=== PATIENT | female | born 1995 | race Two or more races ===

== ENCOUNTER 2020-12-29 09:48 | Emergency (ER) | payer MEDICAID ==
[~2020-12-29] VITALS: Ht 170.2 cm; Wt 63.5 kg
[2020-12-29 11:11] VITALS: BP 138/84
== END 2020-12-29 11:23 | disposition home or self-care (01) ==
LOC: ER 09:48
DX: S93.402A Sprain of unspecified ligament of left ankle, initial encounter (principal); V43.62XA Car passenger injured in collision with other type car in traffic accident, initial encounter; Y93.89 Activity, other specified; Y92.488 Other paved roadways as the place of occurrence of the external cause; Y99.8 Other external cause status
CPT/HCPCS: 73610

== ENCOUNTER 2022-07-26 17:21 | Emergency (ER) | payer MEDICAID ==
[~2022-07-26] VITALS: Ht 170.2 cm; Wt 70.0 kg
[2022-07-26] MEDS ORDERED: methylPREDNISolone SOD SUCC 125 MG/2 ML VL IM ONE (18:45)
[2022-07-26] MEDS ORDERED: diphenhdrAMINE HCL 25 MG CAP PO ONE (18:45)
[2022-07-26] MEDS ORDERED: ACETAMINOPHEN 325 MG TAB PO ONE (18:45)
[2022-07-26 18:47] VITALS: BP 105/58
[2022-07-26] MEDS ORDERED: PRED20TA2 PO (20:47)
== END 2022-07-26 22:06 | disposition home or self-care (01) ==
LOC: ER 17:21
DX: T78.40XA Allergy, unspecified, initial encounter (principal); T78.3XXA Angioneurotic edema, initial encounter; Z79.899 Other long term (current) drug therapy; Y92.89 Other specified places as the place of occurrence of the external cause
CPT/HCPCS: 96372; 99283; J2930